=== PATIENT | male | born 2000 | race Caucasian/White ===

== ENCOUNTER 2018-01-04 18:18 | Emergency (ER) | payer OTHER ==
[2018-01-04 18:31] VITALS: BP 136/105
--- NOTE | 2018-01-04 18:39 | EDPHY ---
H & P Stated Complaint: felt pop in back at r scapular region lifting a chain saw above his head Time Seen by Provider: 01/04/18 18:39 - Personal History Current Tetanus Diphtheria and Acellular Pertussis (TDAP): Yes - Medical/Surgical History Hx Asthma: No Hx Chronic Respiratory Disease: No Hx Diabetes: No Hx Cardiac Disease: No Hx Renal Disease: No Hx Cirrhosis: No Hx Alcoholism: No Hx HIV/AIDS: No Hx Splenectomy or Spleen Trauma: No Other PMH: denies - Social History Smoking Status: Never smoked Constitutional: Initial Vital Signs Temperature (C) 37 C 01/04/18 18:28 Heart Rate 87 01/04/18 18:28 Respiratory Rate 18 01/04/18 18:28 Blood Pressure 136/105 H 01/04/18 18:28 O2 Sat (%) 97 01/04/18 18:28 O2 Delivery Mode Room Air Allergies/Adverse Reactions: No Known Allergies Allergy (Unverified 01/04/18 18:28) Home Medications: Medication Instructions Recorded Ibuprofen [Motrin] 800 mg PO Q8 #20 tab 01/04/18 Medical Decision Making ED Course/Re-evaluation: CHIEF COMPLAINT: Right scapula pain HISTORY OF PRESENT ILLNESS: This patient is a healthy 17 year old male complaining of right scapular pain secondary to an accidental injury at work today. 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 He felt a popping sensation in his right scapular region with pain following. He rates his discomfort at 5/10 severity. He endorses similar pain two years ago from repeated lifting. This was resolved with chiropractic manipulation. He denies any other recent trauma or illness and has no further complaints. REVIEW OF SYSTEMS: A comprehensive 10 system review of systems is otherwise negative aside from elements mentioned in the history of present illness and medical decision making. PHYSICAL EXAM: HR, BP, O2 Sat, RR. Temp noted General Appearance: Alert, well hydrated, appropriate, and non-toxic appearing. Head: Atraumatic without scalp tenderness or obvious injury Neck: Supple, nontender. Respiratory: No retractions, no distress, no accessory muscle use. Cardiovascular: Regular rate and rhythm. Good capillary refill all extremities. Musculoskeletal: Tenderness at base of right scapula. Normal active ROM of all extremities, atraumatic. Neurological: Alert, appropriate, and interactive. Nonfocal neuro exam. Skin: No rashes, good turgor, no nodules on palpation. Past medical history: Denies Past surgical history: Noncontributory Family history:Noncontributory. Social history: Employed. Lives in [place]. Does not abuse tobacco, drugs, or alcohol. DIFFERENTIAL DIAGNOSIS: The differential diagnosis for the patient's trauma included but was not limited to intracranial injury, long bone and pelvic bone fractures, spinal injury, intra-abdominal injury, and intra-thoracic injury. MEDICAL DECISION MAKIN17 y/o male presents with right scapular pain secondary to an injury at work today. Exam reveals tenderness at this base of the right scapula. Patient's history and exam are consistent with muscle strain rather than any traumatic processes resulting in fracture or dislocation. Patient declines narcotic pain medications. Plan to administer 800mg PO ibuprofen. Plan to discharge home in good condition. He will follow up with [facility] or with his chiropractor as advised by his workers compensation plan for further evaluation and treatment. Return precautions discussed. He is comfortable with this plan. - Data Points Medications Given: Discontinued Medications Ibuprofen (Motrin) 800 mg PO EDNOW ONE Stop: 01/04/18 18:54 Last Admin: 01/04/18 18:54 Dose: 800 mg Departure - Departure Disposition: Home, Routine, Self-Care Clinical Impression: Strain of levator scapulae muscle Qualifiers: Encounter type: initial encounter Laterality: right Qualified Code(s): S46.811A - Strain of other muscles, fascia and tendons at shoulder and upper arm level, right arm, initial encounter Condition: Good Instructions: Muscle Strain (ED) Additional Instructions: 1. Follow up with [facility] or with your chiropractor as discussed. 2. Take ibuprofen as prescribed. 3. Return to the emergency department for severe pain, fever, numbness, difficulty walking, change in location or nature of pain or other concerns. Referrals: [facility] [Outside] - As per Instructions Prescriptions: Ibuprofen [Motrin] 800 mg PO Q8 #20 tab Report Scribed for: Marlon Stokes Report Scribed by: Susy Alexander Date of Report: 01/04/18 Time of Report: 20:25
[2018-01-04] MEDS ORDERED: IBUPROFEN 800 MG TAB PO ONE ×2 (18:50→18:53)
== END 2018-01-04 19:04 | disposition home or self-care (01) ==
DX: S46.811A Strain of other muscles, fascia and tendons at shoulder and upper arm level, right arm, initial encounter (principal); X50.0XXA Overexertion from strenuous movement or load, initial encounter; Y99.0 Civilian activity done for income or pay; Y93.H2 Activity, gardening and landscaping; Y92.9 Unspecified place or not applicable